=== PATIENT | male | born 1990 | race Caucasian/White ===

== ENCOUNTER 2016-10-24 13:25 | Outpatient (CLI) | payer MEDICAID, MEDICARE, OTHER | END 2016-10-24 23:59 | DX: I48.92 Unspecified atrial flutter (principal); Z79.01 Long term (current) use of anticoagulants ==

== ENCOUNTER 2019-11-18 08:00 | Outpatient (CLI) | payer OTHER, MEDICARE ==
[2019-11-18 14:00] LABS: INR 3.2 (0.8-1.2); PT - PROTHROMBIN TIME 33.9 secs (9.9-12.6)
== END 2019-11-18 23:59 | disposition home or self-care (01) ==
LOC: LAB 08:00
PROVIDERS: ATTEND Pharmacist Pharmacist Clinician (PhC)/ Clinical Pharmacy Specialist
DX: I63.9 Cerebral infarction, unspecified (principal); I48.92 Unspecified atrial flutter; G45.9 Transient cerebral ischemic attack, unspecified; Z79.01 Long term (current) use of anticoagulants
CPT/HCPCS: 36415; 85610

== ENCOUNTER 2019-12-19 17:48 | Outpatient (CLI) | payer OTHER, MEDICARE ==
[2019-12-19 18:26] LABS: INR 3.2 (0.8-1.2); PT - PROTHROMBIN TIME 33.9 secs (9.9-12.6)
== END 2019-12-19 17:49 | disposition home or self-care (01) ==
LOC: LAB 17:48
PROVIDERS: ATTEND Pharmacist Pharmacist Clinician (PhC)/ Clinical Pharmacy Specialist
DX: I48.92 Unspecified atrial flutter (principal); I63.9 Cerebral infarction, unspecified; G45.9 Transient cerebral ischemic attack, unspecified; Z79.01 Long term (current) use of anticoagulants
CPT/HCPCS: 36415; 85610

== ENCOUNTER 2020-02-05 14:07 | Outpatient (CLI) | payer OTHER, MEDICARE ==
[2020-02-05 20:16] LABS: INR 4.3 (0.8-1.2); PT - PROTHROMBIN TIME 44.9 secs (9.9-12.6)
== END 2020-02-05 14:08 | disposition home or self-care (01) ==
LOC: LAB.S 14:07
PROVIDERS: ATTEND Pharmacist Pharmacist Clinician (PhC)/ Clinical Pharmacy Specialist
DX: I48.92 Unspecified atrial flutter (principal); I63.9 Cerebral infarction, unspecified; Z79.01 Long term (current) use of anticoagulants; G45.9 Transient cerebral ischemic attack, unspecified
CPT/HCPCS: 36415; 85610

== ENCOUNTER 2020-04-06 12:33 | Outpatient (CLI) | payer OTHER, MEDICARE ==
[2020-04-06 16:22] LABS: INR 3.7 (0.8-1.2); PT - PROTHROMBIN TIME 39.1 secs (9.9-12.6)
== END 2020-04-06 12:34 | disposition home or self-care (01) ==
LOC: LAB.S 12:33
PROVIDERS: ATTEND Pharmacist Pharmacist Clinician (PhC)/ Clinical Pharmacy Specialist
DX: I48.92 Unspecified atrial flutter (principal); I63.9 Cerebral infarction, unspecified; G45.9 Transient cerebral ischemic attack, unspecified; Z79.01 Long term (current) use of anticoagulants
CPT/HCPCS: 36415; 85610